=== PATIENT | female | born 1940 | race African-American/Black ===

== ENCOUNTER 2017-12-31 08:37 | Inpatient (IN) | payer OTHER, MEDICARE ==
[~2017-12-31] VITALS: Ht 160 cm; Wt 63.5 kg
--- NOTE | 2017-12-31 10:16 | ED GI/GU/ABDOMINAL COMPLAINT ---
History of Present Illness General Chief Complaint: Nausea, Vomiting, Diarrhea Stated Complaint: NVD Source: patient, family Exam Limitations: dementia, poor historian Allergies Coded Allergies: codeine (ITCHING 12/31/17) Triage Note: PT BIBA TO TRIAGE C/O N/V/D X 2 DAYS. CURRENTLY BEING TREATED FOR THRUSH. DENIES PAIN, C/O FEELING THIRSTY. RA SAT 90%. Triage Nurses Notes Reviewed? yes ? N Is pt currently ? No Duration: day(s): (1), constant Timing: recent history Location: epigastric Radiation: no radiation Activities at Onset: none HPI: 77-year-old female comes into the emergency room for further evaluation of weakness and diarrhea. Patient does not ambulate. She's been in and out of the hospital and rehabilitation facilities over the past year. She currently is living with a daughter. Some associated vomiting. No fever. Had some upper abdominal pain. History is limited secondary to patient has early dementia. (Heath MARQUEZ,Marquis) Vital Signs & Intake/Output Vital Signs & Intake/Output Vital Signs Date Time Temp Pulse Resp B/P B/P Pulse O2 O2 Flow FiO2 Mean Ox Delivery Rate 12/31 2333 98.9 104 23 106/68 96 Room Air 12/31 2200 105 76/42 12/31 2145 102 76/48 12/31 2130 102 84/51 12/31 2115 107 79/50 12/31 2055 100 91/50 12/31 2020 102 74/42 12/31 2010 107 75/46 12/31 2000 83/57 12/31 1945 99.4 104 14 62/44 12/31 1920 56/0 12/31 1915 99.2 107 20 62/46 93 Room Air 12/31 1705 101 16 108/46 94 Room Air 12/31 1408 98.2 104 20 119/61 93 Room Air 12/31 1205 107 22 153/63 12/31 1129 93 Room Air ED Intake and Output 01/01 0000 12/31 1200 Intake Total Output Total 200 Balance -200 Output, Stool 200 Patient 140 lb Weight Weight Estimated Measurement Method Reconcile Medications Aspirin (Aspirin*) 81 MG TAB.CHEW 1 TAB PO DAILY HEART HEALTH (Reported) Baclofen 10 MG TABLET 1 TAB PO TID PRN MUSCLE (Reported) Metoprolol Succinate 50 MG TAB.ER.24H 1 TAB PO DAILY BP (Reported) Montelukast Sodium 10 MG TABLET 1 TAB PO DAILY ALLERGIES (Reported) Nystatin 100,000 UNIT/ML ORAL.SUSP 5 ML PO 4 TIMES/DAY THRUSH (Reported) (Nelson Maldonado MD) Past History Travel History Traveled to [place] past 21 day No Medical History Any Pertinent Medical History? see below for history Cardiovascular: hypertension Respiratory: asthma Surgical History Surgical History: non-contributory Psychosocial History What is your primary language Bermudian Tobacco Use: Never used ETOH Use: denies use Illicit Drug Use: denies illicit drug use Family History Hx Contributory? No (Marquis Casillas) Review of Systems Review of Systems Constitutional: Reports: no symptoms. EENTM: Reports: no symptoms. Respiratory: Reports: no symptoms. Cardiovascular: Reports: no symptoms. GI: Reports: see HPI. Genitourinary: Reports: no symptoms. Musculoskeletal: Reports: no symptoms. Skin: Reports: no symptoms. Neurological/Psychological: Reports: no symptoms. Hematologic/Endocrine: Reports: no symptoms. Immunologic/Allergic: Reports: no symptoms. All Other Systems: Reviewed and Negative (Marquis Casillas) Physical Exam Physical Exam General Appearance: well developed/nourished, alert, awake Head: atraumatic Eyes: Bilateral: normal appearance. Ears, Nose, Throat, Mouth: hearing grossly normal, moist mucous membrane Neck: normal inspection Respiratory: no respiratory distress Cardiovascular: tachycardia Gastrointestinal: soft, non-tender Back: normal inspection Extremities: normal range of motion Neurologic/Psych: awake, alert Skin: intact, normal color Core Measures ACS in differential dx? No Sepsis Present: Yes Sepsis Focused Exam Completed? Yes (Marquis Casillas) ED Sepsis Exam Date of Focused Sepsis Exam: 12/31/17 Time of Focused Sepsis Exam: 1130 Sepsis Cardiac Exam: Tachycardia Sepsis Resp Exam: CTA Sepsis Cap Refill Exam: <2 Sec Sepsis Peripheral Pulse Exam: Normal Sepsis Peripheral Pulse Location: Radial Sepsis Skin Color Exam: Normal for Ethnicity Skin Temp/Moisture Exam: Warm/Dry (Marquis Casillas) Progress Differential Diagnosis: COLITIS, UTI, SEPSIS, GASTROENTERITIS Diagnostic Imaging: Viewed by Me: CT Scan. Discussed w/RAD: CT Scan. Comments: PATIENT: [id number] CARVALHO PRESENT AGE: 77 PATIENT ACCOUNT NO: [id number] : 41 LOCATION: [facility] ORDERING PHYSICIAN: Marquis MARQUEZ SERVICE DATE: 12/31/171015 EXAM TYPE: CAT - CT ABD & PELVIS W/O IV CONTRAS EXAMINATION: CT ABDOMEN AND PELVIS WITHOUT CONTRAST CLINICAL INFORMATION: Abdominal pain and diarrhea COMPARISON: None TECHNIQUE: Multidetector volumetric imaging was performed from the superior aspect of the liver through the pubic symphysis. Sagittal and coronal reformatted images were obtained on the technologist's workstation. DLP: 323.21 mGy-cm FINDINGS: LUNG BASES: Dependent changes along the posterior aspects of the lower lobes. Respiratory motion degrades images of the lungs. 1.6 x 1.2 cm mass within the left breast, partially imaged. LIVER, GALLBLADDER, AND BILIARY TREE: The liver is normal in size, shape, and attenuation. No focal hepatic lesion or biliary ductal dilatation is present. Multiple gallstones are seen along the dependent portion of the gallbladder. There may be gallstones within the common bile duct, however visualization is limited by streak artifact from the arthroplasty, patient motion and the lack of IV contrast. The gallbladder wall does not appear to be edematous or thickened. No pericholecystic inflammatory changes. PANCREAS: Poorly visualized. No definite abnormalities. SPLEEN: Unremarkable. ADRENAL GLANDS: Unremarkable. KIDNEYS AND URETERS: Hypodense lesions associated with the renal cortices bilaterally, largest of which is exophytic off the upper pole left kidney measuring 6.8 x 5.7 cm with internal attenuation of 7 Hounsfield units. Some smaller lesions are too small to characterize and furthermore, the streak artifact from the spinal hardware limits evaluation of the internal contents. BLADDER: Underdistended and not well seen. GASTROINTESTINAL TRACT: Diverticulosis without CT evidence of diverticulitis. No evidence of bowel obstruction. Much of the colon is decompressed which limits evaluation. ABDOMINAL WALL: No significant hernia is appreciated. LYMPH NODES: Limited evaluation for lymphadenopathy. No bulky abdominal or pelvic adenopathy appreciated. VASCULAR: Atherosclerosis abdominal aorta without evidence of aneurysm. PELVIC VISCERA: Unremarkable. OSSEOUS STRUCTURES: Posterior spinal fusion L3-L5. Posterior decompression L3-L5. Degenerative changes of the spine. No acute or suspicious osseous abnormality. IMPRESSION: 1. No evidence of acute abnormality within the abdomen or pelvis. 2. Cholelithiasis with possible choledocholithiasis. The gallbladder does not demonstrate any inflammatory changes. Clinical correlation requested. 3. Left breast mass. Correlation with mammography and consultation with a breast specialist is recommended. 4. Diverticulosis without CT evidence of diverticulitis. The colon is mostly decompressed and not well evaluated. 5. Hypodense lesions within the renal cortices, larger of which can be characterized as simple cysts. The smaller too small to characterize but statistically most likely represent additional cysts. This result was discussed with JIMMY Lo at 1:30 PM on 12/31/2017 and it was ascertained that the content and urgency of the report was understood at the time of direct communication. DICTATED BY: Jeanette Pelaez MD DATE/TIME DICTATED:12/31/171322 RESEARCH ADMINISTRATOR:MARITA DATE/TIME TRANSCRIBED:12/31/171322 CONFIDENTIAL, DO NOT COPY WITHOUT APPROPRIATE AUTHORIZATION. <Electronically signed in Other Vendor System> SIGNED BY: Jeanette Pelaez MD 12/31/17 1337 (Heath MARQUEZ,Marquis) Plan of Care: Orders Procedure Date/time Status Nothing by Mouth 12/31 D Active HEPATIC FUNCTION PANEL 12/31 2100 Complete CBC WITHOUT DIFFERENTIAL 12/31 2100 Complete BASIC ELECTROLYTES PLUS BUN&CR 12/31 2100 Complete TROPONIN LEVEL 12/31 2009 Complete LACTIC ACID 12/31 2009 Complete CORTISOL PM 12/31 2009 Complete Transfer patient to 12/31 1948 Active CULTURE,URINE 12/31 1921 Active Pathway - chart 12/31 1539 Active House Staff 12/31 1539 Active Patient Data 12/31 1539 Active Code Status 12/31 1539 Active Patient Data 12/31 1411 Active ED Holding Orders 12/31 1357 Active Admit to inpatient 12/31 1357 Active Vital Signs 12/31 1357 Active Code Status 12/31 1357 Complete Add-on Test (ER Only) 12/31 1249 Active LACTIC ACID 12/31 1159 Complete TROPONIN LEVEL 12/31 1100 Complete DIRECT BILIRUBIN 12/31 1100 Complete Intake & Output 12/31 1019 Active CULTURE,STOOL 12/31 1015 Active C.DIFFICILE 12/31 1015 Active BLOOD CULTURE 12/31 1015 Active Straight Cath 12/31 1010 Active CULTURE,URINE 12/31 1010 Active URINALYSIS 12/31 1010 Complete EKG 12/31 1010 Active LIPASE 12/31 0859 Complete LACTIC ACID 12/31 0859 Complete COMPREHENSIVE METABOLIC PANEL 12/31 0859 Complete CBC WITHOUT DIFFERENTIAL 12/31 0859 Complete Discharge Patient 12/31 UNK Active Lab Add-on Test 12/31 UNK Active VTE Mechanical Prophylaxis 12/31 UNK Active MISTAKE 12/31 UNK Active Intake & Output 12/31 UNK Active Hemoccult 12/31 UNK Active Shah, Insertion/Removal/Asses 12/31 UNK Active Current Medications Sig/Landry Start time Last Medication Dose Stop Time Status Admin Vancomycin HCl 1,000 MG DAILY 01/01 0900 AC Sodium Chloride 250 ML (Normal Saline 0.9%) Sodium Chloride 1,000 ML ONCE ONE 12/31 2345 AC (Normal Saline 0.9%) 01/01 0944 Epinephrine 2 MG Q24H 12/31 2245 AC (EPINEPHRINE DRIP) Dextrose/Water 250 ML (Dextrose 5%) Vasopressin 40 UNITS Q16H 12/31 2130 AC 12/31 (Pitressin) 2155 Sodium Chloride 100 ML (Normal Saline 0.9%) Meropenem 1 GM Q12H 12/31 2100 AC 12/31 (MEROPENEM) 2230 Norepinephrine 4 MG Q24H 12/31 1930 AC 12/31 (Levophed Drip) 2000 Sodium Chloride 250 ML (Normal Saline 0.9%) Ondansetron HCl 4 MG Q8 PRN 12/31 1545 AC 12/31 (Zofran) 1618 Heparin Sodium 5,000 UNIT Q8 12/31 1535 AC 12/31 (Porcine) 1720 Sodium Chloride 1,000 ML .Q10H 12/31 1530 AC 12/31 (Normal Saline 0.9%) 1720 Acetaminophen 0 .STK-MED ONE 12/31 1431 CAN (Ofirmev) Acetaminophen 1,000 MG ONCE ONE 12/31 1430 CAN (Ofirmev) 12/31 1444 N/A 1 UNIT (No Carrier) Laboratory Tests 01/01/18 0600: Sodium Cancelled, Potassium Cancelled, Chloride Cancelled, Carbon Dioxide Cancelled, Anion Gap Cancelled, BUN Cancelled, Creatinine Cancelled, BUN/ Creatinine Ratio Cancelled, Total Bilirubin Cancelled, Direct Bilirubin Cancelled, AST Cancelled, ALT Cancelled, Alkaline Phosphatase Cancelled, Total Protein Cancelled, Albumin Cancelled, CBC w Diff Cancelled, WBC Cancelled, RBC Cancelled, Hgb Cancelled, Hct Cancelled, MCV Cancelled, MCH Cancelled, MCHC Cancelled, RDW Cancelled, Plt Count Cancelled, MPV Cancelled 12/31/172103: PT Cancelled, INR Cancelled 12/31/172009: Anion Gap 11, Estimated GFR 29 L, BUN/Creatinine Ratio 13.5, Lactic Acid 3.8 H , Total Bilirubin 4.7 H, Direct Bilirubin 4.2 H, AST 118 H, ALT 119 H, Alkaline Phosphatase 115, Troponin I 0.08, Total Protein 6.0 L, Albumin 2.8 L, Cortisol PM Sample 72.6 H, CBC w Diff MAN DIFF ORDERED, RBC 3.15 L, MCV 93.9, MCH 31.2 H, MCHC 33.2, RDW 14.3, MPV 9.4, Gran % 91.8 H, Lymphocytes % 2.8 L, Monocytes % 5.4, Eosinophils % 0, Basophils % 0, Absolute Granulocytes 16.4 H, Segmented Neutrophils 60, Band Neutrophils 37 H, Absolute Lymphocytes 0.5 L, Lymphocytes 1 L, Monocytes 2, Absolute Monocytes 1.0 H, Absolute Eosinophils 0 , Absolute Basophils 0, Platelet Estimate DECREASED, Anisocytosis 1+, Macrocytic Cells 1+ 12/31/17 1905: Lactic Acid Cancelled 12/31/17 1421: Lactic Acid 5.4 H 12/31/17 1125: Urinalysis LIGHT H, Urine Color YEL, Urine Clarity HAZY H, Urine pH 6.5, Ur Specific [place] 1.015, Urine Protein 100 H, Urine Ketones NEG, Urine Nitrite NEG, Urine Bilirubin MOD H, Urine Urobilinogen 1.0, Ur Leukocyte Esterase LARGE H, Ur Microscopic SEDIMENT EXAMINED, Urine RBC 10-15 H, Urine WBC 15-25 H, Ur Epithelial Cells MOD H, Urine Bacteria MANY H, Urine Hemoglobin LARGE H, Urine Glucose NEG 12/31/17 1100: Anion Gap 15, Estimated GFR 37 L, BUN/Creatinine Ratio 15.7, Glucose 99, Lactic Acid 5.3 H, Calcium 9.3, Total Bilirubin 4.4 H, Direct Bilirubin 3.4 H, AST 129 H, ALT 146 H, Alkaline Phosphatase 169 H, Troponin I 0.05, Total Protein 7.3, Albumin 3.7, Globulin 3.6, Albumin/Globulin Ratio 1.0 L, Lipase 114, CBC w Diff MAN DIFF ORDERED, RBC 4.21, MCV 91.8, MCH 32.0 H, MCHC 34.8, RDW 14.1, MPV 9.7, Gran % 94.9 H, Lymphocytes % 2.8 L, Monocytes % 2.3, Eosinophils % 0, Basophils % 0, Absolute Granulocytes 10.4 H, Segmented Neutrophils 53, Band Neutrophils 30 H, Absolute Lymphocytes 0.3 L, Lymphocytes 7 L, Monocytes 3, Absolute Monocytes 0.3, Absolute Eosinophils 0, Absolute Basophils 0, Metamyelocytes 6 H, Myelocytes 1 H, Platelet Estimate ADEQUATE, Anisocytosis 1 +, Macrocytic Cells 1+ 12/31/17 1010: Troponin I Cancelled Microbiology 12/31 1921 URINE ROUT: Urine Culture - COLB 12/31 1450 STOOL: Clostridium difficile Toxin A & B - RECD 12/31 1450 STOOL: Stool Culture - RECD 12/31 1418 BLOOD: Blood Culture - RES GRAM POSITIVE YOEL GRAM NEGATIVE RODS 12/31 112 URINE ROUT: Urine Culture - RECD 12/31 1125 BLOOD: Blood Culture - RES GRAM POSITIVE YOEL GRAM NEGATIVE RODS Initial ED EKG: normal axis, normal intervals, normal p-waves, normal QRS complex, normal sinus rhythm, nonspecific ST T wave chg (Joel WOODRUFF,Nelson) Comments: Updated by micro with 1/2 cultures with Gram + rods. (Evan WOODRUFF,Shaun) Comments: 01/01/2018 8:27:47 AM I was notified by the microbiology department about a positive blood culture for both gram-positive and gram-negative rods. I have been attempting to contact the [facility] regarding this positive result. 01/01/2018 8:50:33 AM I have notified Ines Edge MD, hospitalist, of this patient's microbiology report. (Sandy WOODRUFF,Abe Kamara) Departure Departure Disposition: STILL A PATIENT Condition: Stable Clinical Impression Primary Impression: Sepsis Secondary Impressions: Cholangitis Referrals: Mike WOODRUFF,Marco (PCP/Family) Departure Forms: Customer Survey General Discharge Information Admission Note Spoke With: Anselmo WOODRUFF,Tuyet Documentation of Exam: Documentation of any treatments & extenuating circumstances including Concerns Regarding Discharge (functional status, medication knowledge or non-compliance, living conditions, etc.) that warrant an admission rather than observation: GI consultation. Ultrasound. Possibly ERCP. IV antibiotics. IV fluids. Repeat labs. Surgery consultation. Urine culture sent. Medically not safe for discharge. C DIFF ORDERED. (Marquis Casillas) Procedures Central Line Central Line Lumen: triple Central Line Procedure: Yes: sterile drapes applied, sterile dressing applied. No: bentadine prep?. Central Line Position: sublavian (R) Anesthesia: lidocaine 1% CC's of Anesthesia: 4 Complications: none Central Line Post Position: sutured, good blood return, position confirmed w/ CXR (Evan WOODRUFF,Shaun) Critical Care Note Critical Care Note Critical Care Time: 30-74 min (45) (Marquis Casillas)
[2017-12-31] MEDS ORDERED: CLONIDINE HCL0.2 M1 PO (10:24)
[2017-12-31] MEDS ORDERED: PRAVACHOL40 M1 PO (10:24)
[2017-12-31] MEDS ORDERED: HYDRALAZINE HCL50 M1 PO (10:25)
[2017-12-31] MEDS ORDERED: HYDROCHLOROTHIA25 M1 PO (10:26)
[2017-12-31] MEDS ORDERED: CALCITRIOL0.25 MC1 PO (10:26)
[2017-12-31] MEDS ORDERED: CRANBERRY PLUS1 EAC1 PO (10:27)
[2017-12-31] MEDS ORDERED: VITAMIN B122500 MC1 PO (10:27)
[2017-12-31] MEDS ORDERED: METOPROLOL SUCC50 M2 PO ×2 (10:28→10:46)
[2017-12-31] MEDS ORDERED: OMEPRAZOLE20 M2 PO (10:28)
[2017-12-31] MEDS ORDERED: COZAAR50 M1 PO (10:28)
[2017-12-31] MEDS ORDERED: FUROSEMIDE20 M1 PO (10:29)
[2017-12-31] MEDS ORDERED: TRAMADOL HCL50 M1 PO (10:30)
[2017-12-31] MEDS ORDERED: PROMACTA12.5 MG PO (10:30)
[2017-12-31] MEDS ORDERED: VITAMIN D250000 UNIT PO (10:30)
[2017-12-31] MEDS ORDERED: RENVELA800 M1 PO (10:31)
[2017-12-31] MEDS ORDERED: NYSTATIN1 EAC8 TOP (10:32)
[2017-12-31] MEDS ORDERED: MECLIZINE HCL25 MG PO (10:32)
[2017-12-31] MEDS ORDERED: BACLOFEN10 M1 PO (10:46)
[2017-12-31] MEDS ORDERED: MONTELUKAST SOD10 M1 PO (10:46)
[2017-12-31] MEDS ORDERED: ASPIRIN81 M4 PO (10:47)
[2017-12-31] MEDS ORDERED: NYSTATIN100000 UNI PO (10:47)
[2017-12-31 11:22] LABS: ABSOLUTE BASOPHIL COUNT 0 /CUMM (0.0-0.2); ABSOLUTE EOSINOPHIL COUNT 0 /CUMM (0.0-0.7); ABSOLUTE GRANULOCYTE CT 10.4 /CUMM (1.4-6.5); ABSOLUTE LYMPH COUNT 0.3 /CUMM (1.2-3.4); ABSOLUTE MONOCYTE COUNT 0.3 /CUMM (0.10-0.60); BASOPHIL % 0 % (0.0-2.0); EOSINOPHIL % 0 % (0-5); GRANULOCYTE % 94.9 % (42.2-75.2); HEMATOCRIT 38.7 % (37-47); MEAN CORPUSCULAR HGB CONC 34.8 G/DL (33.0-37.0); MEAN CORPUSCULAR VOLUME 91.8 FL (81.0-99.0); MEAN PLATELET VOLUME 9.7 FL (7.4-10.4); PLATELET COUNT 162 /CUMM (130-400); RBC DISTRIBUTION WIDTH 14.1 % (11.5-14.5); RED BLOOD CELL CT 4.21 /CUMM (4.20-5.40); WHITE BLOOD CELL COUNT 10.9 /CUMM (4.8-10.8)
--- NOTE | 2017-12-31 13:37 | CT SCAN REPORT ---
EXAMINATION: CT ABDOMEN AND PELVIS WITHOUT CONTRAST CLINICAL INFORMATION: Abdominal pain and diarrhea COMPARISON: None TECHNIQUE: Multidetector volumetric imaging was performed from the superior aspect of the liver through the pubic symphysis. Sagittal and coronal reformatted images were obtained on the technologist's workstation. DLP: 323.21 mGy-cm FINDINGS: LUNG BASES: Dependent changes along the posterior aspects of the lower lobes. Respiratory motion degrades images of the lungs. 1.6 x 1.2 cm mass within the left breast, partially imaged. LIVER, GALLBLADDER, AND BILIARY TREE: The liver is normal in size, shape, and attenuation. No focal hepatic lesion or biliary ductal dilatation is present. Multiple gallstones are seen along the dependent portion of the gallbladder. There may be gallstones within the common bile duct, however visualization is limited by streak artifact from the arthroplasty, patient motion and the lack of IV contrast. The gallbladder wall does not appear to be edematous or thickened. No pericholecystic inflammatory changes. PANCREAS: Poorly visualized. No definite abnormalities. SPLEEN: Unremarkable. ADRENAL GLANDS: Unremarkable. KIDNEYS AND URETERS: Hypodense lesions associated with the renal cortices bilaterally, largest of which is exophytic off the upper pole left kidney measuring 6.8 x 5.7 cm with internal attenuation of 7 Hounsfield units. Some smaller lesions are too small to characterize and furthermore, the streak artifact from the spinal hardware limits evaluation of the internal contents. BLADDER: Underdistended and not well seen. GASTROINTESTINAL TRACT: Diverticulosis without CT evidence of diverticulitis. No evidence of bowel obstruction. Much of the colon is decompressed which limits evaluation. ABDOMINAL WALL: No significant hernia is appreciated. LYMPH NODES: Limited evaluation for lymphadenopathy. No bulky abdominal or pelvic adenopathy appreciated. VASCULAR: Atherosclerosis abdominal aorta without evidence of aneurysm. PELVIC VISCERA: Unremarkable. OSSEOUS STRUCTURES: Posterior spinal fusion L3-L5. Posterior decompression L3-L5. Degenerative changes of the spine. No acute or suspicious osseous abnormality. IMPRESSION: 1. No evidence of acute abnormality within the abdomen or pelvis. 2. Cholelithiasis with possible choledocholithiasis. The gallbladder does not demonstrate any inflammatory changes. Clinical correlation requested. 3. Left breast mass. Correlation with mammography and consultation with a breast specialist is recommended. 4. Diverticulosis without CT evidence of diverticulitis. The colon is mostly decompressed and not well evaluated. 5. Hypodense lesions within the renal cortices, larger of which can be characterized as simple cysts. The smaller too small to characterize but statistically most likely represent additional cysts. This result was discussed with JIMMY Lo at 1:30 PM on 12/31/2017 and it was ascertained that the content and urgency of the report was understood at the time of direct communication.
--- NOTE | 2017-12-31 14:07 | History & Physical ---
Marcin Blake 12/31/17 1406: General Information and HPI MD Statement: I have seen and personally examined АЛЕКСАНДР CARVALHO and documented this H&P. The patient is a 77 year old F who presented with a patient stated chief complaint of []. Source of Information: patient, family, old records, EMS Exam Limitations: patient's age, not alert/orientated, poor historian, physical impairment History of Present Illness: Patient is a 77 year old female with a PMH of early stages of dementia, HTN, Asthma , lives with her daughter, BIBBenita for abdominal pain, diarrhea, vomitting for the past 2 days. The pain was sudden in onset, gradually increasing, with no aggravating or releiving factors, more severe in the RUQ, but diffuse and gassy in nature. SHe could not tolerate food and began throwing up. She was in mild- moderate distress due to pain and could not sit up during examination. Denies eating outside in the recent past. The patient has a allergy ( itching) to oxycodone and hasnt receieveed any pain medications so far. SHe also has a continueos yellowish diarrhea and has been vomitting . Denies Fever, jaundice, pain in lower quadrants, Cough/ CP, blood in stools, bloody vomittus, etc. Allergies/Medications Allergies: Coded Allergies: codeine (ITCHING 12/31/17) Home Med list Aspirin (Aspirin*) 81 MG TAB.CHEW 1 TAB PO DAILY HEART HEALTH (Reported) Baclofen 10 MG TABLET 1 TAB PO TID PRN MUSCLE (Reported) Metoprolol Succinate 50 MG TAB.ER.24H 1 TAB PO DAILY BP (Reported) Montelukast Sodium 10 MG TABLET 1 TAB PO DAILY ALLERGIES (Reported) Nystatin 100,000 UNIT/ML ORAL.SUSP 5 ML PO 4 TIMES/DAY THRUSH (Reported) Past History Travel History Traveled to [place] past 21 day No Medical History Cardiovascular: hypertension Respiratory: asthma Surgical History Surgical History: unobtainable Past Family/Social History Psychosocial History ETOH Use: denies use Illicit Drug Use: denies illicit drug use Review of Systems Review of Systems Constitutional: Reports: see HPI, weakness. Denies: chills, diaphoresis, fever, malaise, unexplained weight loss. Cardiovascular: Denies: chest pain, edema, orthopena, palpitations, peripheral edema, syncope. Respiratory: Denies: cough, hemoptysis, orthopnea, short of breath, sputum production, stridor, wheezing. GI: Reports: abdominal pain, bloating, diarrhea, distention, nausea, changes in stool, vomiting. Denies: constipation, bowel incontinence, melena, bloody stool , steatorrhea. Genitourinary: Reports: no symptoms. Musculoskeletal: Reports: no symptoms. Exam & Diagnostic Data Last 24 Hrs of Vital Signs/I&O Vital Signs Date Time Temp Pulse Resp B/P B/P Pulse O2 O2 Flow FiO2 Mean Ox Delivery Rate 12/31 1205 107 22 153/63 12/31 0846 98.7 112 20 96/65 90 Room Air Intake & Output 12/31 1600 12/31 0800 12/31 0000 Intake Total Output Total 200 Balance -200 Output, Stool 200 Patient 140 lb Weight Weight Estimated Measurement Method Physical Exam General Appearance Alert, Oriented X3, Cooperative, Mild Distress Cardiovascular Regular Rate, No Murmurs Lungs Clear to Auscultation, Normal Air Movement Abdomen QABDOMEN IS DISTENDED, BOWEL SOUNDS HEARD, ON PALPATION SEVERE TENDERNESS IN RUQ, EPIGASTRIC AREAS. PATIENT IS IN MILD- MODERATE DISTRESS Neurological Normal Gait, Normal Speech, Strength at 5/5 X4 Ext, Normal Tone, Sensation Intact Extremities No Clubbing, No Cyanosis, No Edema, Normal Pulses, No Tenderness/ Swelling Last 24 Hrs of Labs/Ian: Laboratory Tests 12/31/172009: Anion Gap 11, Estimated GFR 29 L, BUN/Creatinine Ratio 13.5, Lactic Acid 3.8 H , Total Bilirubin 4.7 H, Direct Bilirubin 4.2 H, AST 118 H, ALT 119 H, Alkaline Phosphatase 115, Troponin I 0.08, Total Protein 6.0 L, Albumin 2.8 L, Cortisol PM Sample 72.6 H, CBC w Diff MAN DIFF ORDERED, RBC 3.15 L, MCV 93.9, MCH 31.2 H, MCHC 33.2, RDW 14.3, MPV 9.4, Gran % 91.8 H, Lymphocytes % 2.8 L, Monocytes % 5.4, Eosinophils % 0, Basophils % 0, Absolute Granulocytes 16.4 H, Segmented Neutrophils 60, Band Neutrophils 37 H, Absolute Lymphocytes 0.5 L, Lymphocytes 1 L, Monocytes 2, Absolute Monocytes 1.0 H, Absolute Eosinophils 0 , Absolute Basophils 0, Platelet Estimate DECREASED, Anisocytosis 1+, Macrocytic Cells 1+ 12/31/17 1905: Lactic Acid Cancelled 12/31/17 1421: Lactic Acid 5.4 H 12/31/17 1125: Urinalysis LIGHT H, Urine Color YEL, Urine Clarity HAZY H, Urine pH 6.5, Ur Specific [place] 1.015, Urine Protein 100 H, Urine Ketones NEG, Urine Nitrite NEG, Urine Bilirubin MOD H, Urine Urobilinogen 1.0, Ur Leukocyte Esterase LARGE H, Ur Microscopic SEDIMENT EXAMINED, Urine RBC 10-15 H, Urine WBC 15-25 H, Ur Epithelial Cells MOD H, Urine Bacteria MANY H, Urine Hemoglobin LARGE H, Urine Glucose NEG 12/31/17 1100: Anion Gap 15, Estimated GFR 37 L, BUN/Creatinine Ratio 15.7, Glucose 99, Lactic Acid 5.3 H, Calcium 9.3, Total Bilirubin 4.4 H, Direct Bilirubin 3.4 H, AST 129 H, ALT 146 H, Alkaline Phosphatase 169 H, Troponin I 0.05, Total Protein 7.3, Albumin 3.7, Globulin 3.6, Albumin/Globulin Ratio 1.0 L, Lipase 114, CBC w Diff MAN DIFF ORDERED, RBC 4.21, MCV 91.8, MCH 32.0 H, MCHC 34.8, RDW 14.1, MPV 9.7, Gran % 94.9 H, Lymphocytes % 2.8 L, Monocytes % 2.3, Eosinophils % 0, Basophils % 0, Absolute Granulocytes 10.4 H, Segmented Neutrophils 53, Band Neutrophils 30 H, Absolute Lymphocytes 0.3 L, Lymphocytes 7 L, Monocytes 3, Absolute Monocytes 0.3, Absolute Eosinophils 0, Absolute Basophils 0, Metamyelocytes 6 H, Myelocytes 1 H, Platelet Estimate ADEQUATE, Anisocytosis 1 +, Macrocytic Cells 1+ 12/31/17 1010: Troponin I Cancelled Microbiology 12/31 1921 URINE ROUT: Urine Culture - COLB 12/31 1450 STOOL: Clostridium difficile Toxin A & B - RECD 12/31 1450 STOOL: Stool Culture - RECD 12/31 1418 BLOOD: Blood Culture - RECD 12/31 112 URINE ROUT: Urine Culture - RECD 12/31 112 BLOOD: Blood Culture - RES GRAM POSITIVE YOEL Assessment/Plan Assessment: Patient is 77 year old female witha PMH of allergy to oxycodone, dementia, hypertension metoprolol presented to the ER with abdominal pain and distention,, diarrhea, associated vomiting. , Hypotension, leukocytosis, elevated liver enzymes, lactic acidosis, elevated LFTS, CT abdomen showed choleilithiasis with possible choledocolithiasis, Diverticulosis, Left breast mass. In the ER she was given IVF, had an episode of unresponsiveness s/p dilaudid reversed by Narcane. Assessment/ Plan- 1)cholilithiasis with suspected Choledocolithiasis and suspected cholangitis 2) allergy to oxycocdone( itching) 2) elevated Liver enzymes, bilirubin 4) Unresponsiveness to dilaudid 5) Hypokalemia 6) hypotensive episode 7) Left breast mass- incidental finding on CT. Plan- 1) Cholilithiasis with suspected cholangitis - Sepsis - Patient was being admitted to [facility], but had to be transferred to ICU due to later hypotensive changes - q sofa - 2, meets SIRS criteria for severe sepsis - CT was suggestive of cholilithiasis without any evidence of cholidocholithiais or cholangitis. -MRI abdomen- for further investigation -IVF, NPO -srtarted on Ceftrizxone and Flagyl -GI consult appreciated. -Cardiology and surgery consulted before the rapid response event. 2) Unresponsive episode - Ptaient recieved dilaudid 2mg as she is allergc to oxycodone and elevated LFT restricted the use of Acetaminophen. -receieved Narcane for unresponsive episode and was reverted instantly -USG-The common bile duct is dilated to 1.1 cm. Overall, the exam is nondiagnostic for assessment of choledocholithiasis with possible obstruction. Consider follow-up with MRCP or ERCP if appropriate based upon clinical assessment. The patient is unable to lie still, therefore MRCP would likely be nondiagnostic unless the patient becomes compliant. 3) Hypokalemia -KCL - Trend BEP 4) Hypotensive episode- Patient became hypotensive during the work up and was transferred to ICU for furteher management - IVF was given in the process and Central line was established Full code As Ranked By This Provider Problem List: 1. Cholelithiasis 2. Sepsis Core Measures/Misc (12/29) Acute Coronary Syndrome ACS Diagnosis: No Congestive Heart Failure Congestive Heart Failure Diagnosis No Cerebrovascular Accident CVA/TIA Diagnosis: No VTE (View Protocol) VTE Risk Factors No risk factors No Mechanical VTE Prophylaxis d/t Other No VTE Pharm Prophylaxis d/t Other Sepsis (View protocol) Sepsis Present: Yes If YES complete Sepsis Event Note If YES complete Sepsis Event Note Elvira Yo MDm 12/31/17 1827: Core Measures/Misc (12/29) Sepsis (View protocol) If YES complete Sepsis Event Note If YES complete Sepsis Event Note Resident Review Statement Resident Statement: examined this patient, discussed with wedding planning internship, agreed with wedding planning internship Other Findings: The patient is 77-year-old female who was presenting to ED for evaluation of abdominal pain diarrhea and vomiting ongoing for past 2 days. The patient is in significant distress because of pain and cannot provide elaborate history. Her home medications include aspirin metoprolol baclofen and montelukast. Patient is a poor historian at this point most likely secondary to the ongoing pain. As per patient her pain was sudden in onset and started 2 days ago more severe in right upper quadrant gas in character no relieving factor worsened by sitting up. Patient also reports feeling nauseous and a few episodes of vomiting. She also gave history of ongoing diarrhea for past few days. I have called patient' s daughter and left a message with the callback number to get more detailed history. The patient is alert oriented 3 she does not know the name of the hospital because she just moved here from a skilled nursing and started living with her daughter. Again history needs to be confirmed. 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 -Physical exam alert oriented 3 in severe distress because of pain, right upper quadrant tenderness bowel sounds present S1-S2 lungs clear to auscultation, scleral icteric -Admission labs are significant for leukocytosis 10.9 with bands 30, BP is significant for hypokalemia 3.4 bicarb of 20 creatinine of 1.4 BUN 22, lactic acidosis 5.3, total bilirubin 4.4 direct bilirubin 3.3 AST 129 ALT 146 alk phos 164, lipase normal -Imaging findings choledocholithiasis, left breast mass, renal cysts -In ED patient received ceftriaxone metronidazole 2 L of normal saline The patient is currently being admitted to general medicine floor for treatment and evaluation of following conditions #Severe sepsis possible cholangitis/choledocholithiasis Patient meets SIRS criteria with tachycardia and low blood pressure initially elevated white count lactic acidosis and bandemia. LFTs and her CT scan was suggestive of possible choledocholithiasis. Patient has scleral icterus suggestive of jaundice along with right upper quadrant abdominal pain however is afebrile at this point. Initial blood pressure was low but picked up after fluid resuscitation. Patient is alert oriented 3 -Aggressive IV hydration. -ceftriaxone and metronidazole for empirical coverage -Dilaudid for pain control -Zofran for nausea -Follow-up blood cultures urine culture and C. difficile, stool culture -Stat GI consult -We will repeat labs in the evening -Patient might need to be transferred for emergent ERCP #Hypokalemia will aggressively replete #Lactic acidosis In setting of severe sepsis -Aggressive IV hydration -Continue to trend #Hyperbilirubinemia transaminitis In setting of cholangitis/choledocholithiasis -GI consult placed -Continue to monitor -IV hydration -Consider right upper quadrant ultrasound/MRCP/emergent ERCP #HERNAN? Baseline cr not known assuming normal, low flow state vs dehydartaion -IV fluids -avoid nephrotoxins -Monitor Cr curve #Left Breast mass Patient will require outpatient management will talk to the daughter about these findings. Patient is full code /DVT prophylaxis with subcu hep/will keep her n.p.o. for now Otoniel WOODRUFF,Alem 12/31/17 4309: Core Measures/Misc (12/29) Sepsis (View protocol) If YES complete Sepsis Event Note If YES complete Sepsis Event Note Attending MD Review Statement Attending Statement Attending MD Statement: examined this patient, discuss w/resident/PA/GENERAL OFFICE ASSISTANT, agreed w/resident/PA/GENERAL OFFICE ASSISTANT, reviewed EMR data (avail), discussed with nursing, discussed with case mgmt, amended to note Attending Assessment/Plan: Patient seen and examined. History and physical is as documented by the residents above. She was in significant pain when seen. Aparently due to a reported codiene allergy and her renal insufficieny a decision was made in the emergency room not to medicate her for pain control. The allergy to codiene is itching per family. I have recommend medicating the pating with dilaudid intravenously and monitoring closely for any untoward events. She may recieve benadryl if she develops any significant pruritus. Imaging so far has been suboptimal due t her pain but is suggestive of choledocholithiasis. She has no imaging suggestion of cholangitis, but i is noted that she has an elevated WBC and lactic acid level. No reported fever so far. Her ekg shows nonspecfic ST changes and we have none here for comparison. She has no reported cardiac history that we are currently aware of. She is on ASA and beta-meghan therapy. Recomendations. - Admit to the in-pt medical service - Pain control with IV dilaudid. - Keeep NPO. Obtian MRCP as suggestd by the GI service once pain is better controlled. - Obtain echocardiogram and cardiology consultation for pre-op clearance as i anticipate she will require cholecystectomy in the future. - Continue emperic antibioitic coverage for now. - Follow up stool studies. - Hold ASA. Resume beta-meghan if her blood pressure is stable. - DVT prophylaxis.
--- NOTE | 2017-12-31 15:56 | Cons- Gastroenterology ---
General Information and HPI Consulting Request Date of Consult: 12/31/17 Requested By: Alem Frederick MD Reason for Consult: Abdo pain Source of Information: old records Exam Limitations: unable to give history History of Present Illness: Patient is a 77 year old female with dementia presenting with abdominal pain, diarrhea, vomitting for the past 2 days. History is obtained form her daughter. The pain was sudden in onset, gradually increasing, with no aggravating or releiving factors, more severe in the RUQ, but diffuse and gassy in nature. She was mild- moderate distress due to pain and could not sit up during examination. Denies eating outside in the recent past. The patient has a allergy (itching) to oxycodone and hasnt receieveed any pain medications so far. She also has a continueos yellowish diarrhea and has been vomitting . Denies Fever, pain in lower quadrants, Cough/ CP, blood in stools, bloody vomittus, etc Allergies/Medications Allergies: Coded Allergies: codeine (ITCHING 12/31/17) Home Med List: Aspirin (Aspirin*) 81 MG TAB.CHEW 1 TAB PO DAILY HEART HEALTH (Reported) Baclofen 10 MG TABLET 1 TAB PO TID PRN MUSCLE (Reported) Metoprolol Succinate 50 MG TAB.ER.24H 1 TAB PO DAILY BP (Reported) Montelukast Sodium 10 MG TABLET 1 TAB PO DAILY ALLERGIES (Reported) Nystatin 100,000 UNIT/ML ORAL.SUSP 5 ML PO 4 TIMES/DAY THRUSH (Reported) Current Medications: Current Medications Sig/Landry Start time Last Medication Dose Route Stop Time Status Admin Acetaminophen 0 .STK-MED ONE 12/31 1431 CAN IV Acetaminophen 1,000 MG ONCE ONE 12/31 1430 CAN N/A 1 UNIT IV 12/31 1444 Albuterol Sulfate 0 .STK-MED ONE 12/31 1045 DC INH Ceftriaxone Sodium 1,000 MG DAILY 12/31 1538 AC IV Ceftriaxone Sodium 0 .STK-MED ONE 12/31 1431 DC .ROUTE Ceftriaxone Sodium 1,000 MG ONCE ONE 12/31 1315 DC 12/31 IV 12/31 1316 1438 Heparin Sodium 5,000 UNIT Q8 12/31 1535 AC (Porcine) SC Hydromorphone HCl 2 MG ONCE PRN 12/31 1530 AC IV Metronidazole 500 MG IQ8 12/31 1600 AC N/A 1 UNIT IV Metronidazole 500 MG ONCE ONE 12/31 1315 DC 12/31 N/A 1 UNIT IV 12/31 1414 1438 Ondansetron HCl 4 MG Q8 PRN 12/31 1545 UNVr PO Potassium Chloride 10 MEQ ONCE ONE 12/31 1230 DC 12/31 IV 12/31 1231 1232 Sodium Chloride 1,000 ML .Q10H 12/31 1530 AC IV Sodium Chloride 1,000 ML BOLUS ONE 12/31 1200 DC 12/31 IV 12/31 1259 1203 Sodium Chloride 1,000 ML BOLUS ONE 12/31 1015 DC 12/31 IV 12/31 1114 1100 Past History Travel History Traveled to [place] past 21 day No Medical History Blood Transfusion Hx: No Cardiovascular: hypertension Respiratory: asthma Surgical History Surgical History: non-contributory Psychosocial History ETOH Use: denies use Illicit Drug Use: denies illicit drug use Review of Systems Review of Systems: Patient able to respond to direct questions and denies: CP, SOB, rigors, joint pains. Exam & Diagnostic Data Vital Signs and I&O Vital Signs Date Time Temp Pulse Resp B/P B/P Pulse O2 O2 Flow FiO2 Mean Ox Delivery Rate 12/31 1205 107 22 153/63 12/31 0846 98.7 112 20 96/65 90 Room Air Intake & Output 12/31 1600 12/31 0400 12/30 1600 12/30 0400 12/29 1600 12/29 0400 Intake Total Output Total 200 Balance -200 Output, Stool 200 Patient 140 lb Weight Weight Estimated Measurement Method Patient is alert but disorientated in time and place. Abdo is not distended. Patient C/O tenderness to mild palpation in RUQ. Not tneder in other areas. Guarding. No rebound. BS present. Assessment/Plan Assessment/Recommendations: Patient with poor history presenting with N/V and diarrheoa and abdominal pain. 1. Gastroenteritis is possible but the localised nature of the pain in RUQ makes this less likley. For stool culture, O and P. 2. cholecystitis. Await US to get a better idea 3. cholangitis. In view of the poor imaging of the CBD by a non-contrast CT and US, suggest an MRCP. We will review MRCP results and provide more input regarding need for ERCP. WBC was slightly elevated. Please repeat LFTS and CBC tonight. Consult Acknowledgment - Thank you for your consult request.
--- NOTE | 2017-12-31 16:10 | ULTRASOUND REPORT ---
EXAMINATION: US ABDOMEN LIMITED CLINICAL INFORMATION: Right upper quadrant pain, elevated LFTs. COMPARISON: CT 12/31/2017 TECHNIQUE: Real-time imaging of the right upper quadrant abdominal viscera. FINDINGS: Limited visualization due to patient's body habitus and the patient's inability to hold her breath. Overlying bowel gas also obscured views of the liver. The patient was unable to lay still for the exam. PANCREAS: The visualized proximal portions were unremarkable. The distal body and tail were obscured by bowel gas. LIVER: No definite focal liver masses are seen. The liver is within normal size limits. Small biliary ducts were able to be seen, questioning whether there is mild intrahepatic biliary dilatation. GALLBLADDER: The gallbladder is physiologically distended. Multiple mobile gallstones are present. No evidence of gallbladder wall thickening or pericholecystic fluid. Negative sonographic Yan sign. COMMON BILE DUCT: Normal in caliber measuring 1.1 cm in diameter. RIGHT KIDNEY: Upper pole cyst measuring 2.5 x 2.1 x 2.4 cm. No hydronephrosis. No renal calculi or focal parenchymal lesions. The kidney measures 9.1 cm in maximum dimension. FREE FLUID: None. IMPRESSION: Significantly limited evaluation as detailed above. The liver was poorly assessed, however there may be some degree of intrahepatic biliary dilatation. The common bile duct is dilated to 1.1 cm. Overall, the exam is nondiagnostic for assessment of choledocholithiasis with possible obstruction. Consider follow-up with MRCP or ERCP if appropriate based upon clinical assessment. The patient is unable to lie still, therefore MRCP would likely be nondiagnostic unless the patient becomes compliant. No sonographic evidence to support acute cholecystitis.
--- NOTE | 2017-12-31 18:37 | Cons- General Surgery ---
General Information and HPI Consulting Request Date of Consult: 12/31/17 History of Present Illness: CC: abdominal pain HPI: yo non-diabetic non-smoker overweight female c/o RUQ / epigastric pain severe stabbing constant radiates straight through to upper back onset late at night lasting hours intermittent prior episodes during , , not worse with activity no relation to foods (ie. fried or cheese) relieved by time associated with n/v diarrhea no fevers no particular darkening of urine (ie iced tea) or lightening / loose stools (hopson), no FHx of gallbladder problems. Otherwise no changes bowel habits, weight or appetite. I've reviewed the PFSH. No history of GERD, PUD, bleeding problems, heart disease or issues with anesthesia. Allergies/Medications Allergies: Coded Allergies: codeine (ITCHING 12/31/17) Home Med List: Aspirin (Aspirin*) 81 MG TAB.CHEW 1 TAB PO DAILY HEART HEALTH (Reported) Baclofen 10 MG TABLET 1 TAB PO TID PRN MUSCLE (Reported) Metoprolol Succinate 50 MG TAB.ER.24H 1 TAB PO DAILY BP (Reported) Montelukast Sodium 10 MG TABLET 1 TAB PO DAILY ALLERGIES (Reported) Nystatin 100,000 UNIT/ML ORAL.SUSP 5 ML PO 4 TIMES/DAY THRUSH (Reported) Current Medications: I reviewed Current Medications Sig/Landry Start time Last Medication Dose Route Stop Time Status Admin Acetaminophen 0 .STK-MED ONE 12/31 1431 CAN IV Acetaminophen 1,000 MG ONCE ONE 12/31 1430 CAN N/A 1 UNIT IV 12/31 1444 Albuterol Sulfate 0 .STK-MED ONE 12/31 1045 DC INH Ceftriaxone Sodium 1,000 MG DAILY 12/31 1538 AC IV Ceftriaxone Sodium 0 .STK-MED ONE 12/31 1431 DC .ROUTE Ceftriaxone Sodium 1,000 MG ONCE ONE 12/31 1315 DC 12/31 IV 12/31 1316 1438 Heparin Sodium 0 .STK-MED ONE 12/31 1716 DC (Porcine) .ROUTE Heparin Sodium 0 .STK-MED ONE 12/31 1716 DC (Porcine) .ROUTE Heparin Sodium 5,000 UNIT Q8 12/31 1535 AC 12/31 (Porcine) SC 1720 Hydromorphone HCl 0 .STK-MED ONE 12/31 1613 DC .ROUTE Hydromorphone HCl 2 MG ONCE PRN 12/31 1530 AC 12/31 IV 1618 Metronidazole 500 MG IQ8 12/31 1600 AC N/A 1 UNIT IV Metronidazole 500 MG ONCE ONE 12/31 1315 DC 12/31 N/A 1 UNIT IV 12/31 1414 1438 Naloxone HCl 0 .STK-MED ONE 12/31 1706 DC .ROUTE Ondansetron HCl 0 .STK-MED ONE 12/31 1612 DC .ROUTE Ondansetron HCl 4 MG Q8 PRN 12/31 1545 AC 12/31 PO 1618 Potassium Chloride 10 MEQ ONCE ONE 12/31 1230 DC 12/31 IV 12/31 1231 1232 Sodium Chloride 1,000 ML .Q10H 12/31 1530 AC 12/31 IV 1720 Sodium Chloride 1,000 ML BOLUS ONE 12/31 1200 DC 12/31 IV 12/31 1259 1203 Sodium Chloride 1,000 ML BOLUS ONE 12/31 1015 DC 12/31 IV 12/31 1114 1100 Past History Medical History Blood Transfusion Hx: No Cardiovascular: hypertension Respiratory: asthma Surgical History Pertinent Surgical History: non-contributory Psychosocial History ETOH Use: denies use Illicit Drug Use: denies illicit drug use Exam & Diagnostic Data Vital Signs and I&O I reviewed Vital Signs Date Time Temp Pulse Resp B/P B/P Pulse O2 O2 Flow FiO2 Mean Ox Delivery Rate 12/31 1705 101 16 108/46 94 Room Air 12/31 1408 98.2 104 20 119/61 93 Room Air 12/31 1205 107 22 153/63 12/31 1129 93 Room Air 12/31 0846 98.7 112 20 96/65 90 Room Air I reviewed Intake & Output 12/31 1600 12/31 0800 12/31 0000 12/30 1600 12/30 0800 12/30 0000 Intake Total Output Total 200 Balance -200 Output, Stool 200 Patient 140 lb Weight Weight Estimated Measurement Method Last 24 Hours of Labs: I reviewed Laboratory Tests 12/31 12/31 1421 1125 Chemistry Lactic Acid (0.7 - 2.1 mmol/L) 5.4 H Urines Urinalysis LIGHT H Urine Color (YEL,AMB,STR) YEL Urine Clarity (CLEAR) HAZY H Urine pH (5.0 - 8.0) 6.5 Ur Specific [place] (1.001 - 1.035) 1.015 Urine Protein (NEG,<30 MG/DL) 100 H Urine Ketones (NEG) NEG Urine Nitrite (NEG) NEG Urine Bilirubin (NEG) MOD H Urine Urobilinogen (0.1 - 1.0 EU/dl) 1.0 Ur Leukocyte Esterase (NEG) LARGE H Ur Microscopic SEDIMENT EXAMINED Urine RBC (0 - 5 /HPF) 10-15 H Urine WBC (0 - 2 /HPF) 15-25 H Ur Epithelial Cells (NONE,FEW) MOD H Urine Bacteria (NEG/NONE) MANY H Urine Hemoglobin (NEG) LARGE H Urine Glucose (N MG/DL) NEG 12/31 12/31 1100 1010 Chemistry Sodium (137 - 145 mmol/L) 138 Potassium (3.5 - 5.1 mmol/L) 3.4 L Chloride (98 - 107 mmol/L) 103 Carbon Dioxide (22 - 30 mmol/L) 20 L Anion Gap (5 - 16) 15 BUN (7 - 17 mg/dL) 22 H Creatinine (0.5 - 1.0 mg/dL) 1.4 H Estimated GFR (>60 ml/min) 37 L BUN/Creatinine Ratio (7 - 25 %) 15.7 Glucose (65 - 99 mg/dL) 99 Lactic Acid (0.7 - 2.1 mmol/L) 5.3 H Calcium (8.4 - 10.2 mg/dL) 9.3 Total Bilirubin (0.2 - 1.3 mg/dL) 4.4 H Direct Bilirubin (< 0.4 mg/dL) 3.4 H AST (14 - 36 U/L) 129 H ALT (9 - 52 U/L) 146 H Alkaline Phosphatase (<127 U/L) 169 H Troponin I (< 0.11 ng/ml) 0.05 Cancelled Total Protein (6.3 - 8.2 g/dL) 7.3 Albumin (3.5 - 5.0 g/dL) 3.7 Globulin (1.9 - 4.2 gm/dL) 3.6 Albumin/Globulin Ratio (1.1 - 2.2 %) 1.0 L Lipase (23 - 300 U/L) 114 Hematology CBC w Diff MAN DIFF ORDERED WBC (4.8 - 10.8 /CUMM) 10.9 H RBC (4.20 - 5.40 /CUMM) 4.21 Hgb (12.0 - 16.0 G/DL) 13.5 Hct (37 - 47 %) 38.7 MCV (81.0 - 99.0 FL) 91.8 MCH (27.0 - 31.0 PG) 32.0 H MCHC (33.0 - 37.0 G/DL) 34.8 RDW (11.5 - 14.5 %) 14.1 Plt Count (130 - 400 /CUMM) 162 MPV (7.4 - 10.4 FL) 9.7 Gran % (42.2 - 75.2 %) 94.9 H Lymphocytes % (20.5 - 51.1 %) 2.8 L Monocytes % (1.7 - 9.3 %) 2.3 Eosinophils % (0 - 5 %) 0 Basophils % (0.0 - 2.0 %) 0 Absolute Granulocytes (1.4 - 6.5 /CUMM) 10.4 H Segmented Neutrophils (42.2 - 75.2 %) 53 Band Neutrophils (0.0 - 5.0 %) 30 H Absolute Lymphocytes (1.2 - 3.4 /CUMM) 0.3 L Lymphocytes (20.5 - 51.1 %) 7 L Monocytes (1.7 - 9.3 %) 3 Absolute Monocytes (0.10 - 0.60 /CUMM) 0.3 Absolute Eosinophils (0.0 - 0.7 /CUMM) 0 Absolute Basophils (0.0 - 0.2 /CUMM) 0 Metamyelocytes (0.0 - 1.0 %) 6 H Myelocytes (0 - 0 %) 1 H Platelet Estimate (ADEQUATE) ADEQUATE Anisocytosis 1+ Macrocytic Cells 1+ Assessment/Plan Assessment/Plan We will complete, choledocholithiasis defer to GI for now Consult Acknowledgment - Thank you for your consult request.
[2017-12-31 20:21] LABS: ABSOLUTE BASOPHIL COUNT 0 /CUMM (0.0-0.2); ABSOLUTE EOSINOPHIL COUNT 0 /CUMM (0.0-0.7); ABSOLUTE GRANULOCYTE CT 16.4 /CUMM (1.4-6.5); ABSOLUTE LYMPH COUNT 0.5 /CUMM (1.2-3.4); BASOPHIL % 0 % (0.0-2.0); EOSINOPHIL % 0 % (0-5); GRANULOCYTE % 91.8 % (42.2-75.2); MEAN CORPUSCULAR HGB 31.2 PG (27.0-31.0); MEAN CORPUSCULAR HGB CONC 33.2 G/DL (33.0-37.0); MEAN CORPUSCULAR VOLUME 93.9 FL (81.0-99.0); MEAN PLATELET VOLUME 9.4 FL (7.4-10.4); PLATELET COUNT 109 /CUMM (130-400); RBC DISTRIBUTION WIDTH 14.3 % (11.5-14.5)
[2017-12-31 20:26] LABS: HEMATOCRIT 29.5 % (37-47); RED BLOOD CELL CT 3.15 /CUMM (4.20-5.40); WHITE BLOOD CELL COUNT 17.8 /CUMM (4.8-10.8)
--- NOTE | 2017-12-31 20:33 | Cons- CRCU ---
Ariadne WOODRUFF,[facility] 12/31/172032: General Information and HPI Consulting Request Date of Consult: 12/31/17 Requested By: Dr. Frederick Reason for Consult: Septic shock Source of Information: old records Exam Limitations: clinical condition, dementia History of Present Illness: Ms. Rodriguez is 77-year-old female with past medical history of hypertension, spasm of the back on baclofen, chronic kidney disease mostly due to hypertension (no baseline), recent treatment with nystatin for oral Imra, allergic rhinitis, early onset dementia who presented to ED with chief complaint of right upper quadrant abdominal pain associated with vomiting and diarrhea. Patient was found to have leukocytosis with left shift and bandemia, lactic acidosis, thrombocytopenia. MRCP was obtained that revealed distended gallbladder with gallstones in the gallbladder. There is no edema around the gallbladder. There is dilatation of the biliary tree. CBD measuring 1 cm. There is a 4 mm stone in the distal common duct. Multiple bilateral renal cysts. Patient was transferred to ICU for biliary septic shock however remained in ED until time of transfer to [facility]. Initially patient received antibiotics of ceftriaxone and Flagyl, that was changed to meropenem and vancomycin. Blood cultures and urine culture were obtained. Vital signs initially were stable however patient started to have biliary septic shock status post 3 fluid boluses, pressors were started Levophed and vasopressin. Patient received stress dose hydrocortisone 400 mg. Patient maintaining blood pressure 100/60. Last blood work at 8 PM WBC 17.8 with left shift and bandemia 37, H&H 9.8/29.5, platelet 109, sodium 138, potassium 3.2, chloride 110, bicarb 17, anion gap 11, BUN 23, creatinine 1.7, lactic acid 3.8, total bilirubin 4.7, direct bilirubin 4.2, AST 118, ALT 119, cortisol random level 72.6 Initial troponin 0 0.05, second troponin 0 0.08 with no EKG changes or symptoms. One tube of the blood culture set positive for gram-positive rods. Patient is conscious, alert, oriented to self and place. Denied any abdominal apin, N/V at the the [facility]. The on-call interventional radiologist was contacted however he does not think he is able to place the draining tube under these circumstances. Allergies/Medications Allergies: Coded Allergies: codeine (ITCHING 12/31/17) Home Med List: Aspirin (Aspirin*) 81 MG TAB.CHEW 1 TAB PO DAILY HEART HEALTH (Reported) Baclofen 10 MG TABLET 1 TAB PO TID PRN MUSCLE (Reported) Metoprolol Succinate 50 MG TAB.ER.24H 1 TAB PO DAILY BP (Reported) Montelukast Sodium 10 MG TABLET 1 TAB PO DAILY ALLERGIES (Reported) Nystatin 100,000 UNIT/ML ORAL.SUSP 5 ML PO 4 TIMES/DAY THRUSH (Reported) Review of Systems Review of Systems Constitutional: Denies: chills, fever. EENTM: Denies: blurred vision, eye pain. Cardiovascular: Denies: chest pain, palpitations. Respiratory: Denies: cough, short of breath. GI: Reports: abdominal pain, nausea, vomiting. Genitourinary: Denies: discharge, frequency. Skin: Denies: erythema, jaundice. Past History Travel History Traveled to [place] past 21 day No Medical History Blood Transfusion Hx: No Cardiovascular: hypertension Respiratory: asthma Surgical History Surgical History: non-contributory Psychosocial History ETOH Use: denies use Illicit Drug Use: denies illicit drug use Exam & Diagnostic Data Last 24 Hrs of Vital Signs/I&O Vital Signs Date Time Temp Pulse Resp B/P B/P Pulse O2 O2 Flow FiO2 Mean Ox Delivery Rate 12/31 2333 98.9 104 23 106/68 96 Room Air 12/31 2200 105 76/42 12/31 2145 102 76/48 12/31 2130 102 84/51 12/31 2115 107 79/50 12/31 2055 100 91/50 12/31 2020 102 74/42 12/31 2010 107 75/46 12/31 2000 83/57 12/31 1945 99.4 104 14 62/44 12/31 1920 56/0 12/31 1915 99.2 107 20 62/46 93 Room Air 12/31 1705 101 16 108/46 94 Room Air 12/31 1408 98.2 104 20 119/61 93 Room Air 12/31 1205 107 22 153/63 12/31 1129 93 Room Air 12/31 0846 98.7 112 20 96/65 90 Room Air Intake & Output 12/31 1600 12/31 0800 12/31 0000 Intake Total Output Total 200 Balance -200 Output, Stool 200 Patient 63.503 kg Weight Weight Estimated Measurement Method Physical Exam General Appearance: alert, awake, moderate distress Head: atraumatic, normal appearance Eyes: Bilateral: PERRL, EOMI, pale conjunctivae. Ears, Nose, Throat: normal pharynx, normal ENT inspection, hearing grossly normal Neck: normal inspection, supple, full range of motion Respiratory: normal breath sounds, chest non-tender, no respiratory distress Cardiovascular: regular rate/rhythm Gastrointestinal: normal bowel sounds, soft, non-tender Extremities: normal inspection, normal range of motion, no edema Last 48 Hrs of Labs/Ian: Laboratory Tests 12/31/172009: Anion Gap 11, Estimated GFR 29 L, BUN/Creatinine Ratio 13.5, Lactic Acid 3.8 H , Total Bilirubin 4.7 H, Direct Bilirubin 4.2 H, AST 118 H, ALT 119 H, Alkaline Phosphatase 115, Troponin I 0.08, Total Protein 6.0 L, Albumin 2.8 L, Cortisol PM Sample 72.6 H, CBC w Diff MAN DIFF ORDERED, RBC 3.15 L, MCV 93.9, MCH 31.2 H, MCHC 33.2, RDW 14.3, MPV 9.4, Gran % 91.8 H, Lymphocytes % 2.8 L, Monocytes % 5.4, Eosinophils % 0, Basophils % 0, Absolute Granulocytes 16.4 H, Segmented Neutrophils 60, Band Neutrophils 37 H, Absolute Lymphocytes 0.5 L, Lymphocytes 1 L, Monocytes 2, Absolute Monocytes 1.0 H, Absolute Eosinophils 0 , Absolute Basophils 0, Platelet Estimate DECREASED, Anisocytosis 1+, Macrocytic Cells 1+ 12/31/17 1905: Lactic Acid Cancelled 12/31/17 1421: Lactic Acid 5.4 H 12/31/17 1125: Urinalysis LIGHT H, Urine Color YEL, Urine Clarity HAZY H, Urine pH 6.5, Ur Specific [place] 1.015, Urine Protein 100 H, Urine Ketones NEG, Urine Nitrite NEG, Urine Bilirubin MOD H, Urine Urobilinogen 1.0, Ur Leukocyte Esterase LARGE H, Ur Microscopic SEDIMENT EXAMINED, Urine RBC 10-15 H, Urine WBC 15-25 H, Ur Epithelial Cells MOD H, Urine Bacteria MANY H, Urine Hemoglobin LARGE H, Urine Glucose NEG 12/31/17 1100: Anion Gap 15, Estimated GFR 37 L, BUN/Creatinine Ratio 15.7, Glucose 99, Lactic Acid 5.3 H, Calcium 9.3, Total Bilirubin 4.4 H, Direct Bilirubin 3.4 H, AST 129 H, ALT 146 H, Alkaline Phosphatase 169 H, Troponin I 0.05, Total Protein 7.3, Albumin 3.7, Globulin 3.6, Albumin/Globulin Ratio 1.0 L, Lipase 114, CBC w Diff MAN DIFF ORDERED, RBC 4.21, MCV 91.8, MCH 32.0 H, MCHC 34.8, RDW 14.1, MPV 9.7, Gran % 94.9 H, Lymphocytes % 2.8 L, Monocytes % 2.3, Eosinophils % 0, Basophils % 0, Absolute Granulocytes 10.4 H, Segmented Neutrophils 53, Band Neutrophils 30 H, Absolute Lymphocytes 0.3 L, Lymphocytes 7 L, Monocytes 3, Absolute Monocytes 0.3, Absolute Eosinophils 0, Absolute Basophils 0, Metamyelocytes 6 H, Myelocytes 1 H, Platelet Estimate ADEQUATE, Anisocytosis 1 +, Macrocytic Cells 1+ 12/31/17 1010: Troponin I Cancelled Assessment/Plan CRCU Consult Acknowledgment - Thank you for your consult request. Yung WOODRUFF,[facility] 12/31/172046: Assessment/Plan CRCU Impression/Plan: Patient is a 77 year old female with dementia presenting with abdominal pain, diarrhea, vomitting for the past 2 days. History is obtained form her daughter. The pain was sudden in onset, gradually increasing, with no aggravating or releiving factors, more severe in the RUQ, but diffuse and gassy in nature. She was mild- moderate distress due to pain and could not sit up during examination. Denies eating outside in the recent past. The patient has a allergy (itching) to oxycodone and hasnt receieveed any pain medications so far. She also has a continueos yellowish diarrhea and has been vomitting . Seen and examined independently in the emergency room SIGNIFICANT DATA MRI of the abdomen showed distended gallbladder with gallstones, slightly dilated biliary duct at 1 cm, 4 mm stone in the distal common duct. Bilateral renal cyst. CT scan of abdomen and pelvis showed no significant abnormality other than cholelithiasis and possible choledocholithiasis. Patient does have a breast mass in the left side which needs to be followed. Other blood work reviewed lactic acid continues to be elevated but seems to be coming down now. Anion gap was 15 now down to 11 Renal function shows worsening creatinine of 1.7 potassium was 3.2 bilirubin is elevated at 4.7 LFTs elevated with normal alkaline phosphatase now which was elevated before. White count 17.8 with significant bandemia Patient does have thrombocytopenia with 37% bands. Cultures pending Blood pressure was low in the emergency room, pulse rate 104, oxygen saturation 91% on 4 L. General Appearance Alert, Oriented X3, Cooperative, Mild Distress Cardiovascular Regular Rate, No Murmurs Lungs Clear to Auscultation, Normal Air Movement Abdomen QABDOMEN IS DISTENDED, BOWEL SOUNDS HEARD, ON PALPATION SEVERE TENDERNESS IN RUQ, EPIGASTRIC AREAS. PATIENT IS IN MILD- MODERATE DISTRESS Neurological Normal Gait, Normal Speech, Strength at 5/5 X4 Ext, Normal Tone, Sensation Intact Extremities No Clubbing, No Cyanosis, No Edema, Normal Pulses, No Tenderness/ Swelling IMPRESSION This is a lady with prior history of hypertension, spasm of the back on baclofen , recent treatment with nystatin for oral Mira, allergic rhinitis, on and off memory loss, now has Septic shock, lactic acidosis, thrombocytopenia, severe bandemia due to biliary sepsis. Patient has a 4 mm choledochal lithiasis with dilated biliary duct with hyperbilirubinemia. Patient seems to be adequately fluid resuscitated. She would need immediate ERCP. Severe diarrhea in the recent past few days. Could be related to sepsis versus gastroenteritis. CT scan of the abdomen and MRI of the abdomen did not reveal any significant pathology in the bowel Acute on chronic kidney disease with creatinine of 1.7 due to low flow state probably and sepsis and ATN Prior history of hypertension, allergic rhinitis stable Incidental finding in the CT scan of the abdomen showing a left breast mass which needs evaluation. RECOMMENDATION Intravenous fluids Check CVP Intravenous meropenem Consider transfer to [facility] for emergent ERCP to be done if not tonight tomorrow. If patient gets worse she probably would need IR guided placement of a drainage tube to her gallbladder Continue levo fed Shah catheter Patient has been adequately fluid resuscitated. Check CVP and back off on the fluids Keep the head of bed elevated Repeat chest x-ray Watch for any diarrhea and check stool for C. difficile, ova and parasite, culture Hold off other medications including baclofen etc. Apparently patient was not taking baclofen regularly so chance of withdrawal is low Patient is not aware of her left breast mass. This needs to be evaluated with a mammogram prior to discharge Discussed with GI attending. He is agreeable for the patient to be transferred soon. Pt is critically ill tts 50 mins Discussed with the family Consult Acknowledgment - Thank you for your consult request.
--- NOTE | 2017-12-31 20:43 | MRI REPORT ---
EXAMINATION: MRI ABDOMEN WITHOUT CONTRAST/MRCP CLINICAL INFORMATION: Right upper quadrant pain. Concern for stones. COMPARISON: Ultrasound of abdomen today. CT scan abdomen pelvis today. TECHNIQUE: An MRI scan of the abdomen was performed using multiple imaging sequences and imaging planes. As per the MRCP protocol, heavily T2-weighted 3-D high-resolution MRCP sequences were obtained in the coronal plane along with thin and thick slab coronal images and coronal MIP reconstructions. FINDINGS: Lung bases: There is minimal volume dependent pleural effusions bilateral. There is a 1.4 cm cyst in the central left breast. Liver: Liver normal size and signal. No focal cystic or solid mass. Hepatic and portal veins patent. Gallbladder, biliary tree: The gallbladder is distended. There are gallstones lying dependently in the gallbladder. There is no edema around the gallbladder. There is no intrahepatic bile duct dilatation. The extra hepatic CBD is dilated to a diameter of 1 cm. There is a 4 mm stone in the distal common duct, image 10 sequence 12, axial image 19 sequence 4. Pancreas: Pancreas is atrophic. Pancreatic duct is slightly prominent measuring 2 mm. No edema around the pancreas. No pancreatic mass. Spleen: Normal size and appearance. Splenic vein patent. Adrenal Glands and Kidneys: Degenerative glands are normal. There are bilateral renal cysts. Largest cyst is in the upper pole of the left kidney measuring 6.5 cm. Bowel Loops: Grossly within normal limits. Lymphovascular Structures: Abdominal aorta normal in caliber. No periaortic collections. No abdominal adenopathy or free fluid collection. Bones: Transpedicular screws present in the lower lumbar spine. There is degenerative spondylosis of the spine. IMPRESSION: 1. Distended gallbladder with gallstones in the gallbladder. There is no edema around the gallbladder. There is dilatation of the biliary tree. CBD measuring 1 cm. There is a 4 mm stone in the distal common duct. 2. Multiple bilateral renal cysts.
--- NOTE | 2017-12-31 21:00 | Event Note ---
Event Note Event Note: Situation - The patient was in the ER, she was being worked up for abdominal pain , taken to the MRI when she became unresponsive. background- The patient was BIBA for abdominal pain, distension, vomittig and CT showed cholilithiasis, transamnitis, lactic acidosis, and was suspected of cholangitis. The patient is allergic to oxycodone and was being given dilaudid for pain, acetaminophen was not given due to elevated liver functions. MRI was being done for this patient. assessment- The patuient was given dilaudid , 15 mins of receieving dilaudid, she becamer unresponsive Recommendations- Narcane was given, which reverted the alterd mental status I talked to Dr. Birmingham briefly soon after the patient had a rapid response, explaining the situation, was told to complete the MRI . The decision to transfer the patient to another hospital for further management was dependent on MRI as per Dr. Birmingham. I saw the patient again after she returned from MRI and her vitals were stable and she was responsive.
--- NOTE | 2017-12-31 21:05 | Event Note ---
Event Note Event Note: situation- Patient became hypotensive BP 60/40 Background- Patient was being worked up for Cholangitis . I talked to Dr. Birmingham briefly soon after the patient had a rapid response, explaining the situation, was told to complete the MRI . The decision to transfer the patient to another hospital for further management was dependent on MRI as per Dr. Birmingham. I saw the patient again after she returned from MRI and her vitals were stable and she was responsive. However at around 7.15 pm on 12/31 patient became hypotensive . Assessment- MRI results were still awaited and patient required an ICU transfer for further management\ Refcommendations- Transfer the patient to ICU
--- NOTE | 2017-12-31 21:17 | Event Note ---
Event Note Event Note: Situation: Went to check on the patient she appeared to be confused less talkative Background patient is a 77-year-old female who is currently under evaluation for gram-negative sepsis secondary to gastritis versus cholangitis/cholecystitis. The patient had a rapid response called earlier in the MRI when she received 2 mg of IV Dilaudid she was given Narcan and she bounced right back to her baseline on presentation A/P Patient was earlier evaluated by HOD Dr. Darnell when the rapid response was called. At that point patient was relatively stable and was maintaining her systolic blood pressure in 110's. Patient's lactate came back to 5.7 despite 2 L of IV fluids the third L was started and another lactate was sent. I was concerned about patient's clinical picture and went noturnist and presented the case. Both of us went to re-evaluate the patient in the ED where she appeared to be somewhat less talkative and slow to respond. At that point blood pressure was obtained which was 60/40. It appeared patient was in septic shock likely secondary to gram negatives bacteremia of biliary origin * Lactate, CBCs and BEP, LFTs was drawn * 1 L of normal saline bolus was started along with peripheral levo fed * ED physician Dr. ulrich was contacted who proceeded with placement of central line * Chest x-ray was ordered * Patient was started on meropenem after talking with * Shah catheter was ordered * Patient was transferred to ICU service * ICU resident contacted Bud to expedite the MRCP reading * Dr. Birmingham was also contacted regarding question about transferring the patient for emergent ERCP, and he wanted to go over MRCP results and to be contacted [facility] as soon as the results were uploaded before considering transfer * At this point, transferring the patient to ICU for further management of septic shock and IV pressors. The antibiotic coverage has been broadened * Patient was reevaluated by myself and the ICU resident Dr. Ron, she seemed to be doing better than earlier her mentation was much improved. * Patient might require emergent ERCP pending MRCP reading
--- NOTE | 2017-12-31 21:21 | RADIOLOGY REPORT ---
EXAMINATION: XR PORTABLE CHEST CLINICAL INFORMATION: Hypotension. COMPARISON: None TECHNIQUE: Portable frontal view of the chest was obtained. 753 FINDINGS: Right subclavian line catheter tip at caval atrial junction. Lung volume is low causing crowding of the bronchovascular markings. Allowing for the low inspiratory effort there is no significant central pulmonary vascular congestion. There is no infiltrate. There is no pleural effusion or pneumothorax. The cardiac and mediastinal contours are normal. Degenerative spondylosis spine with multilevel endplate spurring of the vertebrae. IMPRESSION: 1. Right subclavian line catheter tip at caval atrial junction. 2. No acute abnormality of the chest.
--- NOTE | 2017-12-31 23:15 | Discharge Summary ---
Visit Information Visit Dates Admission Date: 12/31/17 Discharge Date: 12/31/2017 Hospital Course Course Attending Physician: Alem Frederick MD Primary Care Physician: Mike WOODRUFF,Scheurer Hospital Course: Ms. Rodriguez is 77-year-old female with past medical history of hypertension, spasm of the back on baclofen, chronic kidney disease mostly due to hypertension (no baseline), recent treatment with nystatin for oral Mira, allergic rhinitis, early onset dementia who presented to ED with chief complaint of right upper quadrant abdominal pain associated with vomiting and diarrhea. Patient was found to have leukocytosis with left shift and bandemia, lactic acidosis, thrombocytopenia. MRCP was obtained that revealed distended gallbladder with gallstones in the gallbladder. There is no edema around the gallbladder. There is dilatation of the biliary tree. CBD measuring 1 cm. There is a 4 mm stone in the distal common duct. Multiple bilateral renal cysts. Initially patient received antibiotics of ceftriaxone and Flagyl, that was changed to meropenem and vancomycin. Blood cultures and urine culture were obtained. Vital signs initially were stable however patient started to have biliary septic shock status post 3 fluid boluses, pressors were started Levophed and vasopressin, the third pressor was started epinephrine to maintain blood pressure. Patient received stress dose hydrocortisone 400 mg. Patient maintaining blood pressure 100/60, patient is stable for transfer right now. Last blood work at 8 PM WBC 17.8 with left shift and bandemia 37, H&H 9.8/29.5, platelet 109, sodium 138, potassium 3.2, chloride 110, bicarb 17, anion gap 11, BUN 23, creatinine 1.7, lactic acid 3.8, total bilirubin 4.7, direct bilirubin 4.2, AST 118, ALT 119, cortisol random level 72.6 Initial troponin 0 0.05, second troponin 0 0.08 with no EKG changes or symptoms. One tube of the blood culture set positive for gram-positive rods. Patient is conscious, alert, oriented to self and place. Patient should be transferred urgently to [facility] for urgent ERCP. The on -call interventional radiologist was contacted however he does not think he is able to place the draining tube under this circumstances. Incidental finding in the CT scan of the abdomen showing a left breast mass which needs evaluation. Allergies: Coded Allergies: codeine (ITCHING 12/31/17) Disposition Summary Disposition Principal Diagnosis: Biliary septic shock Additional Diagnosis: Acute on chronic CKD Discharge Disposition: other general hospital Discharge Instructions General Discharge Information Code Status: Full Code Patient's Diet: NPO for last 6 hr Patient's Activity: As tolerated Follow-Up Instructions/Appts: Please follow-up with your PCP after discharge Copies To: Torres WOODRUFF,Yannick; Yung WOODRUFF,Waldo Sanders
[2017-12-31 23:33] VITALS: BP 106/68
--- NOTE | 2018-01-01 00:12 | PN- Att Addend ---
Attending Addendum Attending Brief Note This is an addendum made by me as a nocturnal stent covering physician for this patient: Around 6:30 PM on the , I was informed that patient blood pressures were dropping. Patient was admitted for biliary sepsis from a possible biliary obstruction initially. Patient received IV fluids, ceftriaxone, Flagyl. And patient underwent MRCP as per GI advice and the results are pending. Around this time patient blood pressures were dropping to 60s-70s, patient was given 2 more liters of normal saline boluses. Which did not improve the blood pressures. We requested emergency room physician to place a central line. She had a right IJ placed. She was placed on Levophed drip, be maximized to 20 mics per minute as blood pressure was still low. MRI of abdomen results showed there was a 4 mm stone obstructing the CBD. We discussed the case with the critical care doctor Dr. Barragan, also gastroenterology over phone. Both suggested to transfer the patient to [place] where an emergent ERCP can be done. We were in the process of doing that when her systolic blood pressure was slightly improved to around 100. Spoke to critical care at [facility] who accepted the patient. But around , patient blood pressure again dropped to 70s. We started on vasopressin as a second pressor after speaking to critical care. Even with that blood pressure did not improve so we gave her stress steroid dose. We also upgraded antibiotics of meropenem. In view of her in stable condition, as per advice from the [facility] critical care, we were proceeding with IR intervention to do a cholecystostomy. We requested radiologist to come over here for this procedure. We were informed that in view of her unstable condition they are not able to do any procedure on this patient. To stabilize her we ordered blood pressure which is a epinephrine. But fortunately her blood pressures improved to 100 with mean arterial pressure above 65. We notified the critical care physician at [facility], they were agreeable to take the patient. As patient blood pressures remain stable around 100, we transferred her to [facility] in a stable condition. We did not have to start the third pressor as blood pressures were better on vasopressin and norepinephrine drips. Her mental status remained stable, respiratory status was stable with 98% saturations on 2 L.
== END 2017-12-31 22:15 | disposition short-term general hospital (02) | DRG 871 ==
LOC: ERH 08:37 → ERHI 13:57 → CANRESERV 21:31 → ENRESERV 21:31 → ERHI 22:15 → CMPBEDREQ 01-01 10:12
PROVIDERS: Internal Medicine; Physician Assistant Medical
DX: A41.89 Other specified sepsis (principal); N17.0 Acute kidney failure with tubular necrosis; R65.21 Severe sepsis with septic shock; K80.71 Calculus of gallbladder and bile duct without cholecystitis with obstruction; E87.2 Acidosis; A41.50 Gram-negative sepsis, unspecified; I10 Essential (primary) hypertension; J45.909 Unspecified asthma, uncomplicated; E87.6 Hypokalemia; R74.0 Nonspecific elevation of levels of transaminase and lactic acid dehydrogenase [LDH]; Z88.5 Allergy status to narcotic agent; I95.9 Hypotension, unspecified; N63.20 Unspecified lump in the left breast, unspecified quadrant
CPT/HCPCS: 74181; ERO; 71045; 74176; 81001; 82436; 87015; 87040; 87045; 87086; 87899; 87899-59; 93005; 93010; J0131; J0696; J1644; J1720; J2001; J2185; J2310; J2405; J3370; J7040